=== PATIENT | male | born 1980 | race Caucasian/White ===

== ENCOUNTER 2018-06-09 19:49 | Emergency (ER) | payer SELFPAY ==
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
[2018-06-09] MEDS ORDERED: Ketorolac Tromethamine 60 MG/2 ML VIAL ONE (21:37)
[2018-06-09] MEDS ORDERED: cefTRIAXone\\ROCEPHIN 1 GM VIAL ONE (21:37)
[2018-06-09] MEDS ORDERED: Hydrocodone-Acetamin 15 ML UDCUP ONE (21:53)
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
== END 2018-06-09 22:35 | disposition home or self-care (01) ==
LOC: NAV ERS 19:49
DX: S02.651A Fracture of angle of right mandible, initial encounter for closed fracture (principal); S02.5XXA Fracture of tooth (traumatic), initial encounter for closed fracture; F17.210 Nicotine dependence, cigarettes, uncomplicated; W22.8XXA Striking against or struck by other objects, initial encounter
CPT/HCPCS: 70450; 70486; J0696; J1885